=== PATIENT | male | born 1955 | race African-American/Black ===

== ENCOUNTER 2024-09-20 13:31 | Outpatient (CLI) | payer BC ==
[~2024-09-20 13:31] MED LIST: Magnevist 469MG/ML 20 ML VIAL ONE
== END 2024-09-20 13:32 | disposition home or self-care (01) ==
LOC: CJX 13:31
PROVIDERS: ATTEND Family Medicine
DX: R97.20 Elevated prostate specific antigen [PSA] (principal)
CPT/HCPCS: 72197